=== PATIENT | female | born 1975 | race Hispanic/Latino ===

== ENCOUNTER 2019-03-23 15:54 | Emergency (ER) | payer OTHER, SELFPAY ==
[2019-03-23] MEDS ORDERED: Ketorolac Tromethamine 60 MG/2 ML VIAL ONE (16:18)
[2019-03-23] MEDS ORDERED: Diazepam 5 MG TAB ONE (16:18)
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
== END 2019-03-23 18:05 | disposition home or self-care (01) ==
LOC: ERS 15:54
DX: S60.212A Contusion of left wrist, initial encounter (principal); S60.221A Contusion of right hand, initial encounter; S50.12XA Contusion of left forearm, initial encounter; S50.11XA Contusion of right forearm, initial encounter; R07.89 Other chest pain; V89.2XXA Person injured in unspecified motor-vehicle accident, traffic, initial encounter
CPT/HCPCS: 71046; 96372; J1885